=== PATIENT | male | born 1990 | race Caucasian/White ===

== ENCOUNTER 2018-07-19 10:00 | Outpatient (CLI) | payer OTHER ==
--- NOTE | 2018-07-19 10:46 | RAD ---
PA AND LATERAL VIEWS CHEST: HISTORY: Chronic cough. FINDINGS: The cardiomediastinum is normal. The lungs are expanded without focal areas of consolidation, pneumo thoraces, or pleural effusions. The bony thorax is normal. IMPRESSION: Normal exam. POS: [facility]
== END 2018-07-19 10:01 | disposition home or self-care (01) ==
LOC: SCSRAD 10:00
PROVIDERS: ATTEND Family Medicine
DX: R05 Cough (principal)
CPT/HCPCS: 71046